=== PATIENT | female | born 1980 | race Caucasian/White ===

== ENCOUNTER 2018-09-23 18:32 | Inpatient (IN) | payer MEDICAID, OTHER ==
[~2018-09-23] VITALS: Ht 160 cm; Wt 80.7 kg
[2018-09-23] MEDS ORDERED: CLON0.5T12 PO (18:49)
[2018-09-23] MEDS ORDERED: LAMO25TA66 PO (18:49)
[2018-09-23 19:03] LABS: GLUCOSE,POINT OF CARE 98 MG/DL (70-110)
[2018-09-23 19:23] LABS: BASOPHILS % (AUTO) 0.6 % (0.0-2.0); HEMATOCRIT 40.6 % (36-46); HEMOGLOBIN 13.6 g/dL (12.0-16.0); LYMPHOCYTES % (AUTO) 30.2 % (22.0-44.0); MEAN CORPUSCULAR HEMOGLOBIN 29.9 pg (26.0-34.0); MEAN CORPUSCULAR HGB CONC 33.5 G/dL (31.0-37.0); MEAN CORPUSCULAR VOLUME 89 fL (80-100); MONOCYTES # (AUTO) 0.5 K/uL (0.1-1.0); MONOCYTES % (AUTO) 5.1 % (2.0-9.0); NEUTROPHILS # (AUTO) 6.3 K/uL (1.8-7.7); NEUTROPHILS % (AUTO) 63.1 % (40.0-70.0); PLATELET COUNT (AUTO) 397 K/uL (150-450); RED BLOOD CELL COUNT(AUTO) 4.54 MIL/uL (4.00-5.20); RED CELL DISTRIBUTION WIDTH 13.6 % (11.5-14.5)
[2018-09-23 19:39] LABS: ANION GAP 11 mmol/L (8-16); CALCIUM, TOTAL 9.3 mg/dL (8.8-10.5); CARBON DIOXIDE 28 mmol/L (22-29); CHLORIDE 100 mmol/L (98-107); CREATININE 0.95 mg/dL (0.60-1.30); GLOMERULAR FILTR. RATE CALC > 60 mL/min (>60); GLUCOSE,RANDOM 96 mg/dL (70-110); POTASSIUM 3.9 mmol/L (3.5-5.1); SODIUM SERUM 139 mmol/L (136-145); UREA NITROGEN, BLOOD 10 mg/dL (7-18)
[2018-09-23 19:45] LABS: ALANINE AMINOTRANSFERASE 28 U/L (12-78); ALBUMIN 3.9 g/dL (3.4-5.0); ALKALINE PHOSPHATASE 89 U/L (46-116); ASPARTATE AMINOTRANSFERASE 17 U/L (15-37); BILIRUBIN,TOTAL 0.4 mg/dL (0.1-1.0)
[2018-09-23] MEDS ORDERED: LamoTRIgine 25 MG TABLET PO ONE (20:45)
[2018-09-23] MEDS ORDERED: ClonazePAM 1 MG TABLET PO ONE (20:45)
[2018-09-23] MEDS ORDERED: HALOPERIDOL 5 MG TABLET PO PRN (21:00)
[2018-09-23] MEDS ORDERED: ClonazePAM 0.5 MG TABLET PO ONE (21:00)
[2018-09-23 23:32] LABS: BARBITURATE SCREEN, URINE NEGATIVE (NEGATIVE); BENZODIAZEPINES SCREEN,URINE NEGATIVE (NEGATIVE); CANNABINOID SCREEN,URINE POSITIVE (NEGATIVE); COCAINE SCREEN,URINE NEGATIVE (NEGATIVE); METHADONE SCREEN, URINE NEGATIVE (NEGATIVE); OPIATE SCREEN,URINE NEGATIVE (NEGATIVE)
[2018-09-23 23:48] LABS: PHENCYCLIDINE SCREEN,URINE NEGATIVE (NEGATIVE)
[2018-09-24 00:08] LABS: AMPHET/METH SCREEN,URINE NEGATIVE (NEGATIVE)
[2018-09-24 00:30] VITALS: BP 107/85
[2018-09-24] MEDS: ZOLPIDEM TARTRATE 10 MG TABLET PO PRN (00:34)
[2018-09-24 01:49] LABS: APPEARANCE,URINE CLEAR (CLEAR); BILIRUBIN,URINE NEGATIVE (NEGATIVE); GLUCOSE, URINE (UA) NEGATIVE (NEGATIVE); KETONES,URINE TRACE mg/dL (NEGATIVE); LEUKOCYTE ESTERASE ,URINE NEGATIVE (NEGATIVE); NITRATE,URINE NEGATIVE (NEGATIVE); OCCULT BLOOD,URINE TRACE (NEGATIVE); PH,URINE 5.5 (5.0-8.0); PROTEIN,URINE NEGATIVE (NEGATIVE); UROBILINOGEN,URINE 0.2 mg/dL (<=1.0)
[2018-09-24 01:57] LABS: WBC,URINE 0-2 /HPF (0-5)
[2018-09-24 01:58] LABS: BACTERIA,URINE Rare /HPF (None Seen); SQUAMOUS EPITHELIAL CELL,UR Moderate /LPF (None Seen)
[2018-09-24] MEDS ORDERED: ACETAMINOPHEN 325 MG TABLET PO PRN (07:00)
[2018-09-24 07:11] LABS: HEMOGLOBIN A1C 5.6 % (4.5-6.2)
[2018-09-24 07:25] LABS: CHOL/HDL RATIO 2.7 (3.9-5.7); FREE T4 (FREE THYROXINE) 1.13 ng/dL (0.76-1.46); THYROID STIMULATING HORMONE 1.77 uIU/mL (0.36-3.74)
[2018-09-24 08:24] VITALS: BP 124/68
[2018-09-24] MEDS ORDERED: BISACODYL 5 MG EC TABLET PO PRN (10:15)
[2018-09-24] MEDS: LORazepam 2 MG TABLET PO PRN ×2 (13:03→20:48)
[2018-09-24] MEDS ORDERED: LOPERAMIDE HCL 2 MG CAPSULE PO PRN (13:30)
[2018-09-24 18:15] VITALS: BP 101/79
[2018-09-24] MEDS: LamoTRIgine 100 MG TABLET PO SCH (20:42)
[2018-09-25] MEDS: ZOLPIDEM TARTRATE 10 MG TABLET PO PRN ×2 (03:14→20:16)
[2018-09-25 08:54] VITALS: BP 108/61
[2018-09-25] MEDS: FLUoxetine HCL 20 MG CAPSULE PO SCH (10:28)
[2018-09-25] MEDS: LORazepam 2 MG TABLET PO PRN ×2 (14:06→20:15)
[2018-09-25 17:03] VITALS: BP 113/65
[2018-09-25] MEDS: LamoTRIgine 100 MG TABLET PO SCH (20:15)
[2018-09-25] MEDS: IBUPROFEN 600 MG TABLET PO PRN (21:15)
[2018-09-26 08:22] VITALS: BP 98/58
[2018-09-26] MEDS: FLUoxetine HCL 20 MG CAPSULE PO SCH (10:03)
[2018-09-26] MEDS: LORazepam 2 MG TABLET PO PRN (10:51)
[2018-09-26 17:07] VITALS: BP 120/79
[2018-09-26] MEDS: LamoTRIgine 100 MG TABLET PO SCH (20:17)
[2018-09-26] MEDS: ZOLPIDEM TARTRATE 10 MG TABLET PO PRN (20:19)
[2018-09-26] MEDS: IBUPROFEN 600 MG TABLET PO PRN (21:48)
[2018-09-27 04:13] VITALS: BP 131/71
[2018-09-27 08:53] VITALS: BP 112/68
[2018-09-27] MEDS: FLUoxetine HCL 20 MG CAPSULE PO SCH (10:05)
[2018-09-27] MEDS ORDERED: FLUO-191 PO (13:32)
[2018-09-27] MEDS ORDERED: LAMO100 PO (13:32)
== END 2018-09-27 15:35 | disposition home or self-care (01) | DRG 753 ==
LOC: EMS 18:33 → 3EI 20:30
PROVIDERS: ADMIT Psychiatry & Neurology Psychiatry; ATTEND Psychiatry & Neurology Psychiatry
DX: F31.4 Bipolar disorder, current episode depressed, severe, without psychotic features (principal); R45.851 Suicidal ideations; K59.00 Constipation, unspecified; F12.10 Cannabis abuse, uncomplicated; Z90.49 Acquired absence of other specified parts of digestive tract; Z87.442 Personal history of urinary calculi; Z98.891 History of uterine scar from previous surgery; Z82.49 Family history of ischemic heart disease and other diseases of the circulatory system; Z83.3 Family history of diabetes mellitus; Z88.8 Allergy status to other drugs, medicaments and biological substances; Z71.51 Drug abuse counseling and surveillance of drug abuser
CPT/HCPCS: 83036; 84439; 84443; G0480

== ENCOUNTER 2022-06-04 16:55 | Inpatient (IN) | payer MEDICAID, OTHER ==
[~2022-06-04] VITALS: Ht 160 cm; Wt 91.6 kg
[~2022-06-04 16:55] MED LIST: FLUO-177 PO; LAMO100 PO
[2022-06-04 18:11] LABS: BASOPHILS % (AUTO) 0.7 % (0.0-2.0); EOSINOPHILS % (AUTO) 1.4 % (1.0-6.0); HEMATOCRIT 38.2 % (36-46); LYMPHOCYTES # (AUTO) 3.1 K/uL (1.0-4.8); LYMPHOCYTES % (AUTO) 34.3 % (22.0-44.0); MEAN CORPUSCULAR VOLUME 88 fL (80-100); MONOCYTES # (AUTO) 0.6 K/uL (0.1-1.0); MONOCYTES % (AUTO) 6.2 % (2.0-9.0); NEUTROPHILS # (AUTO) 5.2 K/uL (1.8-7.7); NEUTROPHILS % (AUTO) 57.4 % (40.0-70.0); PLATELET COUNT (AUTO) 418 K/uL (150-450); RED BLOOD CELL COUNT(AUTO) 4.33 MIL/uL (4.00-5.20); RED CELL DISTRIBUTION WIDTH 13.9 % (11.5-14.5)
[2022-06-04 18:21] LABS: ANION GAP 9 mmol/L (8-16); CALCIUM, TOTAL 9.4 mg/dL (8.8-10.5); CARBON DIOXIDE 27 mmol/L (22-29); CHLORIDE 100 mmol/L (98-107); CREATININE 0.96 mg/dL (0.60-1.30); GLUCOSE,RANDOM 97 mg/dL (70-110); POTASSIUM 3.9 mmol/L (3.5-5.1); SODIUM SERUM 136 mmol/L (136-145); UREA NITROGEN, BLOOD 7 mg/dL (7-18)
[2022-06-04 18:23] LABS: GLOMERULAR FILTR. RATE CALC > 60 mL/min (>60)
[2022-06-04 18:28] LABS: ALANINE AMINOTRANSFERASE 32 U/L (12-78); ALBUMIN 4.1 g/dL (3.4-5.0); ALKALINE PHOSPHATASE 94 U/L (46-116); ASPARTATE AMINOTRANSFERASE 17 U/L (15-37); BILIRUBIN,TOTAL 0.4 mg/dL (0.1-1.0); TOTAL PROTEIN, SERUM 8.3 g/dL (6.4-8.2)
[2022-06-04 18:54] LABS: HCG,QUANTITATIVE < 1 mIU/mL (0-6)
[2022-06-04 21:52] LABS: COVID AG,FIA SOURCE NASOPHARYNGEAL
[2022-06-04] MEDS ORDERED: ZOLPIDEM TARTRATE 10 MG TABLET PO PRN (22:00)
[2022-06-04] MEDS ORDERED: HALOPERIDOL 5 MG TABLET PO PRN (22:00)
[2022-06-05 03:09] VITALS: BP 139/91
[2022-06-05 04:42] LABS: APPEARANCE,URINE HAZY (CLEAR); BILIRUBIN,URINE NEGATIVE (NEGATIVE); GLUCOSE, URINE (UA) NEGATIVE (NEGATIVE); LEUKOCYTE ESTERASE ,URINE MODERATE (NEGATIVE); NITRATE,URINE POSITIVE (NEGATIVE); OCCULT BLOOD,URINE NEGATIVE (NEGATIVE); PH,URINE 5.5 (5.0-8.0); PROTEIN,URINE TRACE mg/dL (NEGATIVE); UROBILINOGEN,URINE <=1.0 mg/dL (<=1.0)
[2022-06-05 04:49] LABS: AMPHET/METH SCREEN,URINE NEGATIVE (NEGATIVE); BARBITURATE SCREEN, URINE NEGATIVE (NEGATIVE); BENZODIAZEPINES SCREEN,URINE NEGATIVE (NEGATIVE); CANNABINOID SCREEN,URINE POSITIVE (NEGATIVE); COCAINE SCREEN,URINE NEGATIVE (NEGATIVE); METHADONE SCREEN, URINE NEGATIVE (NEGATIVE); OPIATE SCREEN,URINE NEGATIVE (NEGATIVE)
[2022-06-05 04:56] LABS: BACTERIA,URINE Many /HPF (None Seen); RBC,URINE None Seen /HPF (0-2)
[2022-06-05 05:00] LABS: PHENCYCLIDINE SCREEN,URINE NEGATIVE (NEGATIVE)
[2022-06-05 08:30] VITALS: BP 134/84
[2022-06-05] MEDS: NITROFURANTOIN MONOHYD/M-CRYST 100 MG CAPSULE [MACROBID] PO SCH ×2 (09:12→16:23)
[2022-06-05] MEDS: LORazepam 2 MG TABLET PO PRN (18:02)
[2022-06-05] MEDS ORDERED: IBUPROFEN 600 MG TABLET PO PRN (23:00)
[2022-06-05] MEDS ORDERED: LOPERAMIDE HCL 2 MG CAPSULE PO PRN (23:00)
[2022-06-05] MEDS ORDERED: CloNIDine HCL 0.1 MG TABLET PO PRN (23:00)
[2022-06-05] MEDS ORDERED: BACITRACIN 28 GM OINTMENT TP PRN (23:00)
[2022-06-05] MEDS ORDERED: OMEPRAZOLE 20 MG CAPSULE PO PRN (23:00)
[2022-06-05] MEDS ORDERED: BENZOCAINE/MENTHOL LOZENGE PO PRN (23:00)
[2022-06-05] MEDS ORDERED: ACETAMINOPHEN 325 MG TABLET PO PRN (23:00)
[2022-06-05] MEDS ORDERED: ALBUTEROL SULFATE HFA 90 MCG/PUFF 8 GM INHALER IH PRN (23:00)
[2022-06-05] MEDS ORDERED: ONDANSETRON HCL 4 MG TABLET PO PRN (23:00)
[2022-06-05] MEDS ORDERED: MAG HYDROX/AL HYDROX/SIMETH ES 30 ML SUSPENSION UDCUP PO PRN (23:00)
[2022-06-05] MEDS ORDERED: DOCUSATE SODIUM 100 MG CAPSULE PO PRN (23:00)
[2022-06-05] MEDS ORDERED: PETROLATUM,WHITE 28 GM JELLY TP PRN (23:00)
[2022-06-05] MEDS ORDERED: MAGNESIUM HYDROXIDE SUSPENSION 30 ML UDCUP PO PRN (23:00)
[2022-06-06] MEDS: NITROFURANTOIN MONOHYD/M-CRYST 100 MG CAPSULE [MACROBID] PO SCH ×2 (08:42→16:22)
[2022-06-06] MEDS: QUEtiapine FUMARATE 100 MG TABLET PO SCH (08:42)
[2022-06-06] MEDS: LITHIUM CARBONATE 300 MG CAPSULE PO SCH ×2 (08:42→16:23)
[2022-06-06 09:10] VITALS: BP 134/94
[2022-06-06] MEDS: LORazepam 2 MG TABLET PO PRN (14:41)
[2022-06-06 16:14] VITALS: BP 143/98
[2022-06-06] MEDS ORDERED: QUEtiapine FUMARATE 200 MG TABLET PO SCH (21:00)
[2022-06-07 08:00] VITALS: BP 160/94
[2022-06-07] MEDS: QUEtiapine FUMARATE 100 MG TABLET PO SCH (08:20)
[2022-06-07] MEDS: LITHIUM CARBONATE 300 MG CAPSULE PO SCH (08:20)
[2022-06-07] MEDS: NITROFURANTOIN MONOHYD/M-CRYST 100 MG CAPSULE [MACROBID] PO SCH (08:20)
[2022-06-07] MEDS: LORazepam 2 MG TABLET PO PRN (08:35)
== END 2022-06-07 14:30 | disposition home or self-care (01) | DRG 753 ==
LOC: EMS 16:58 → 3EI 06-05 00:53
PROVIDERS: ADMIT Psychiatry & Neurology Psychiatry; ATTEND Psychiatry & Neurology Psychiatry
DX: F31.9 Bipolar disorder, unspecified (principal); R45.851 Suicidal ideations; F41.9 Anxiety disorder, unspecified; K21.9 Gastro-esophageal reflux disease without esophagitis; N39.0 Urinary tract infection, site not specified; F12.90 Cannabis use, unspecified, uncomplicated; K59.00 Constipation, unspecified; G47.00 Insomnia, unspecified; Z20.822 Contact with and (suspected) exposure to COVID-19; Z87.442 Personal history of urinary calculi; Z91.52 Personal history of nonsuicidal self-harm; Z88.8 Allergy status to other drugs, medicaments and biological substances; Z90.49 Acquired absence of other specified parts of digestive tract; Z98.891 History of uterine scar from previous surgery
CPT/HCPCS: 80053; 80307; 81001; 84702; 85025; 87086; 99285; G0480